=== PATIENT | male | born 1980 ===

== ENCOUNTER 2016-10-20 09:33 | Emergency (ER) | payer MEDICAID ==
[2016-10-20 09:34] VITALS: BMI 21.5
[2016-10-20 09:49] VITALS: BP 132/79; PULSE 91; RESP 20; TEMP 97.5; O2SAT 97
[2016-10-20] MEDS ORDERED: Piperacillin/Tazobact 3.375 GM in Sodium Chloride 0.9% 100 ML IV STA (11:00)
--- NOTE | 2016-10-20 11:01 | ED PDOC ---
Lower Extremity Pain/Injury Time Seen by Provider: 10/20/16 10:03 Chief Complaint (Nursing): Lower Extremity Problem/Injury Chief Complaint (Provider): LE ulceration History Per: Patient Additional Complaint(s): 36 yo male, no PMH, Pt c/o right salazar redness and drainage x5 days. Pt denies any trauma or injury. Pt notes that initially site became red ~ 3-4 weeks ago, then opened up and got worse over time. In the last 4 days site became swollen, red, and draining. LLE has small ulceration developing as well. No fever or chills. Past Medical History Reviewed: Nursing Documentation, Vital Signs Vital Signs: Last Vital Signs Temp 97.5 F L 10/20/16 09:48 Pulse 91 H 10/20/16 09:48 Resp 20 10/20/16 09:48 BP 132/79 10/20/16 09:48 Pulse Ox 97 10/20/16 09:48 - Medical History PMH: No Chronic Diseases Denies: Diabetes, Hepatitis, HIV, HTN, Seizures, Sexually Transmitted Disease - Surgical History Surgical History: No Surg Hx - Family History Family History: States: No Known Family Hx - Living Arrangements Living Arrangements: With Family - Social History Current smoker - smoking cessation education provided: No Alcohol: None Drugs: Denies - Home Medications Home Medications: Ambulatory Orders Medication Instructions Recorded Clindamycin [Cleocin] 300 mg PO BID #14 cap 10/20/16 Mupirocin 2% Cream [Bactroban 30 applic TOP BID #1 tube 10/20/16 Cream] - Allergies Allergies/Adverse Reactions: Allergies Allergy/AdvReac Type Severity Reaction Status Date / Time No Known Allergies Allergy Verified 11/17/15 02:34 Review of Systems ROS Statement: Except As Marked, All Systems Reviewed And Found Negative Musculoskeletal: Positive for: Other (red and swollen) Physical Exam - Reviewed Nursing Documentation Reviewed: Yes Vital Signs Reviewed: Yes - Physical Exam Appears: Positive for: Well, Non-toxic, No Acute Distress Head Exam: Positive for: ATRAUMATIC, NORMAL INSPECTION, NORMOCEPHALIC Skin: Positive for: Normal Color, Warm, DRY Eye Exam: Positive for: EOMI, Normal appearance, PERRL ENT: Positive for: Normal ENT Inspection Neck: Positive for: Normal, Painless ROM Cardiovascular/Chest: Positive for: Regular Rate, Rhythm Respiratory: Positive for: CNT, Normal Breath Sounds Gastrointestinal/Abdominal: Positive for: Normal Exam, Bowel Sounds, Soft Back: Positive for: Normal Inspection Extremity: Positive for: Other (LLE with erythema to mid tibial shaft and small ulceration developing, mild drainage. RLW with hyperpigmentation to mid tibial shaft and small ulceration developing as well.) Neurologic/Psych: Positive for: Alert, Oriented - Laboratory Results Result Diagrams: 10/20/16 11:19 10/20/16 11:19 - ECG O2 Sat by Pulse Oximetry: 97 Medical Decision Making Medical Decision Making: IV access established and diagnostics ordered. Vanco and Zosyn administered. Results discussed with pt who demonstrated full understanding Pt advised to continue with RX at home. Follow up with wound care center and begin wearing compression socks Disposition - Clinical Impression Clinical Impression: Leg ulcer - Patient ED Disposition Is Patient to be Admitted: No - Disposition Referrals: [facility] [Outside] [facility] [Outside] Disposition: Routine/Home Disposition Time: 15:57 Condition: STABLE Prescriptions: Clindamycin [Cleocin] 300 mg PO BID #14 cap Mupirocin 2% Cream [Bactroban Cream] 30 applic TOP BID #1 tube Instructions: Stasis Dermatitis (ED) Forms: [employer] (Azeri) - POA Present On Arrival: None
[2016-10-20] MEDS ORDERED: Vancomycin 1 g Inj ONE (11:07)
[2016-10-20] MEDS ORDERED: Piperacillin/Tazobact 3.375 gm Inj IVPB ONE (11:07)
[2016-10-20 11:25] LABS: BASO # 0.1 K/uL (0.0-0.2); BASO % 0.7 % (0.0-2.0); EOS # 0.3 K/uL (0.0-0.7); EOS % 2.5 % (0.0-4.0); HEMATOCRIT 43.6 % (35.0-51.0); LYMPH % 15.7 % (20.0-40.0); MEAN CELL VOLUME 88.7 fl (80.0-94.0); MEAN CORPUSCULAR HEMOGLOBIN 30.1 pg (27.0-31.0); MEAN CORPUSCULAR HGB CONC 33.9 g/dL (33.0-37.0); MONO # 1.4 K/uL (0.0-0.8); MONO % 10.8 % (0.0-10.0); NEUT # 8.9 K/uL (1.8-7.0); NEUT % 70.3 % (50.0-75.0); NRBC % 0.1 % (0.0-0.0); RED CELL DISTRIBUTION WIDTH 14.6 % (11.5-14.5); WHITE BLOOD COUNT 12.6 K/uL (4.8-10.8)
[2016-10-20 11:35] LABS: ALB/GLOB RATIO 1.3 (1.0-2.1); ALKALINE PHOSPHATASE 66 U/L (38-126); ALT/SGPT 45 U/L (21-72); AST/SGOT 26 U/L (17-59); BILIRUBIN,TOTAL 0.6 mg/dl (0.2-1.3); BLOOD UREA NITROGEN 15 mg/dl (9-20); CALCIUM 9.6 mg/dL (8.4-10.2); CARBON DIOXIDE 28 mmol/L (22-30); CHLORIDE 102 mmol/L (98-107); GFR AFRICAN-AMERICAN > 60; GLUCOSE,RANDOM 110 mg/dL (75-110); POTASSIUM 4.9 MMOL/L (3.6-5.0); SODIUM 139 mmol/l (132-148); TOTAL PROTEIN 8.1 G/DL (6.3-8.2)
--- NOTE | 2016-10-20 15:19 | US ---
PROCEDURE: Duplex ultrasound of the bilateral lower extremity arteries. HISTORY: LE ulcerations developing COMPARISON: None available. TECHNIQUE: Grayscale and duplex Doppler evaluation of the bilateral common femoral, superficial femoral, popliteal, posterior tibial and dorsalis pedis arteries was performed.. FINDINGS: RIGHT LOWER EXTREMITY: RIGHT COMMON FEMORAL ARTERY: Widely patent. Maximal flow velocity of 136.5 cm/s. RIGHT SUPERFICIAL FEMORAL ARTERY: Widely patent. Maximal flow velocity of 117.6 cm/s. RIGHT POPLITEAL ARTERY:Widely patent. Maximal flow velocity of 96.8 cm/s. RIGHT POSTERIOR TIBIAL ARTERY: Widely patent. Maximal flow velocity of 94.9 cm/s. RIGHT DORSALIS PEDIS ARTERY: Widely patent. Maximal flow velocity of 40.8 cm/s. LEFT LOWER EXTREMITY: LEFT COMMON FEMORAL ARTERY: Widely patent. Maximal flow velocity of 103.9 cm/s. LEFT SUPERFICIAL FEMORAL ARTERY: Widely patent. Maximal flow velocity of 13.9 cm/s. LEFT POPLITEAL ARTERY:Widely patent. Maximal flow velocity of 78.0 cm/s. LEFT POSTERIOR TIBIAL ARTERY: Widely patent. Maximal flow velocity of 39.1 cm/s. LEFT DORSALIS PEDIS ARTERY: Widely patent. Maximal flow velocity of 106.2 cm/s. OTHER FINDINGS: Incidental finding(s): Morphologically unremarkable lymph node right inguinal region 1.0 x 2.4 cm IMPRESSION: Normal Duplex Doppler of the bilateral lower extremity arteries.
== END 2016-10-20 13:25 | disposition home or self-care (01) ==
LOC: H.ER 09:33
DX: B95.62 Methicillin resistant Staphylococcus aureus infection as the cause of diseases classified elsewhere (principal)
CPT/HCPCS: 80053; 85025; 85651; 87070; 87181; 93925; 96365; 96366; 96367; 99282; J2543